=== PATIENT | male | born 1960 | race Caucasian/White ===

== ENCOUNTER 2021-03-30 10:45 | Emergency (ER) | payer OTHER ==
[~2021-03-30] VITALS: Wt 70.3 kg
[~2021-03-30 10:45] MED LIST: DAYPRO600 M1 PO; FLEXERIL10 MG PO; IBU-8800 MG PO; KEFLEX500 MG PO
[2021-03-30] MEDS ORDERED: IBUPROFEN600 MG PO (14:11)
== END 2021-03-30 14:17 | disposition home or self-care (01) ==
LOC: ED 10:45
DX: S43.401A Unspecified sprain of right shoulder joint, initial encounter (principal); X50.9XXA Other and unspecified overexertion or strenuous movements or postures, initial encounter; Y93.89 Activity, other specified; Y92.89 Other specified places as the place of occurrence of the external cause; Y99.8 Other external cause status

== ENCOUNTER 2021-11-20 06:18 | Emergency (ER) | payer OTHER ==
[~2021-11-20] VITALS: Ht 185.4 cm; Wt 72.6 kg
[~2021-11-20 06:18] MED LIST changes: +IBUPROFEN600 MG PO
== END 2021-11-20 07:57 | disposition home or self-care (01) ==
LOC: ED 06:18
DX: M25.532 Pain in left wrist (principal)